=== PATIENT | female | born 1980 | race Caucasian/White ===

== ENCOUNTER → 2016-12-09 | Outpatient (CLI) | payer OTHER ==
--- NOTE | 2016-12-09 16:17 | DX ---
Cervical spine 2 views History: Follow-up fusion. Comparison: Cervical spine October 29, 2016. Findings: ACDF at C6-C7 is stable. Hardware is intact without evidence of loosening. Intervertebral g raft material is stable. Trace anterolisthesis of C4 on C5 is not significantly changed. Vertebral andres dy heights are preserved. There is no prevertebral soft tissue swelling. Impression: Stable ACDF at C6-C7.
== END ==
LOC: FIMAGING 10:40
PROVIDERS: ATTEND Physician Assistant Surgical
DX: M48.02 Spinal stenosis, cervical region (principal); Z98.1 Arthrodesis status